=== PATIENT | male | born 1970 | race Two or more races ===

== ENCOUNTER 2021-12-27 05:10 | Emergency (ER) | payer MEDICAID, OTHER ==
[~2021-12-27] VITALS: Ht 177.8 cm; Wt 90.7 kg
[2021-12-27 08:34] LABS: Urine Bacteria NONE SEEN /hpf (None Seen); Urine Blood Negative /uL (Negative); Urine Mucus FEW (None Seen); Urine WBC 3 /hpf (0 - 3)
[2021-12-27 09:04] LABS: Hemoglobin 8.5 g/dL (13.5-17.5); Mean Corpuscular Hemoglobin 20.4 pg (28.0-32.0); Red Blood Cells 4.18 10^6/uL (4.5-5.90)
[2021-12-27 09:07] LABS: Hematocrit 26.8 % (41.0-53.0); Mean Corpuscular Hgb Conc. 31.8 g/dL (32.0-36.0); Mean Corpuscular Volume 64.2 fL (80.0-100.0)
[2021-12-27 09:15] LABS: Red Cell Distribution Width 25.5 % (11.8-14.3)
[2021-12-27 09:18] LABS: Albumin 2.7 g/dL (3.4-5.0); Band Neutrophils % (manual) 0; Basophils % (manual) 0 (0.0-2.0); Blast Cells 0; Calcium 8.4 mg/dL (8.5-10.1); Eosinophils % (manual) 0 (0-7); Metamyelocytes % 0; Myelocytes % 0; Potassium 5.5 mmol/L (3.5-5.1); Promyelocytes % 0; Reactive Lymphocytes 0
[2021-12-27 09:21] LABS: Bilirubin, Total 0.8 mg/dL (0.2-1.0); Total Protein 6.6 g/dL (6.4-8.2)
[2021-12-27 09:56] LABS: Lymphocytes % (manual) 5 (10.0-50.0); Monocytes % (manual) 7 (0-12)
[2021-12-27] MEDS ORDERED: LACTULOSE 20Gm/30ML SOLN PO ONE (10:00)
[2021-12-27] MEDS ORDERED: FUROSEMIDE 40 MG/4 ML VIAL IV ONE (10:00)
[2021-12-27 11:31] VITALS: BP 114/77
== END 2021-12-27 11:36 | disposition home or self-care (01) ==
LOC: ER 05:10
DX: K70.31 Alcoholic cirrhosis of liver with ascites (principal); D63.1 Anemia in chronic kidney disease; N18.4 Chronic kidney disease, stage 4 (severe); R74.8 Abnormal levels of other serum enzymes; E87.5 Hyperkalemia; E44.0 Moderate protein-calorie malnutrition; Z68.28 Body mass index [BMI] 28.0-28.9, adult
CPT/HCPCS: 36415; 80053; 81001; 82140; 83690; 83735; 84443; 85007; 85027; 96374; 99283; J1940